=== PATIENT | female | born 1995 | race Caucasian/White ===

== ENCOUNTER → 2024-02-27 16:06 | Outpatient (CLI) | payer OTHER, SELFPAY ==
--- NOTE | 2024-02-27 16:07 | DI.US.S_ITS ---
PROCEDURE: US OB <= 14 WEEKS FETUS INDICATIONS: dating and viability OUTSIDE/PRIOR DATING DATA: Last menstrual period (LMP): 01/03/2024. LMP-based estimated date of delivery (OWEN): 10/09/2024. First dating scan (date and location): 02/27/2024. Estimated date of delivery (OWEN) from first dating scan: 10/04/2024. TECHNIQUE: Real-time scanning was performed of the fetus and maternal pelvic organs, with image documentation. Endovaginal scanning was also performed to better visualize the fetus and maternal ovaries. COMPARISON: None. FINDINGS: Embryo: 2.0 cm crown-rump length Heart rate: 178 beats per minute Maternal organs: Ovaries unremarkable. IMPRESSION: Single live intrauterine consistent with 8 weeks 4 day gestation Approved by: Derek Bach M.D. on 02/28/2024 at 18:00
== END ==
PROVIDERS: Referring Provider Obstetrics & Gynecology; Visit Provider Obstetrics & Gynecology
DX: Z34.81 Encounter for supervision of other normal pregnancy, first trimester (principal); Z3A.08 8 weeks gestation of pregnancy
CPT/HCPCS: 76801

== ENCOUNTER → 2024-03-28 15:54 | Outpatient (CLI) | payer OTHER, SELFPAY ==
[2024-03-28 18:27] LABS: Urine N gonorrhoeae NOT DETECTED
[2024-03-28 19:02] LABS: Urine Chlamydia NOT DETECTED
== END ==
PROVIDERS: Visit Provider Obstetrics & Gynecology
DX: Z11.3 Encounter for screening for infections with a predominantly sexual mode of transmission (principal)
CPT/HCPCS: 87491; 87591

== ENCOUNTER → 2024-03-28 16:05 | Outpatient (CLI) | payer OTHER, SELFPAY ==
[2024-03-28 17:29] LABS: Natera Collection Specimen Collected
[2024-03-28 17:32] LABS: Add Manual Diff / Slide Review NO; Basophils Absolute Auto 0 /uL (0-100); Basophils Percent Auto 0.7 % (0-2); Eosinophils Absolute Auto 100 /uL (0-450); Hemoglobin 12.3 g/dL (12.0-16.0); Lymphocytes Absolute Auto 2000 /uL (1100-4500); Lymphocytes Percent Auto 29.1 % (25-40); Mean Corpuscular HGB Conc 33.1 % (30-36); Mean Corpuscular Hemoglobin 26.2 PG (26-34); Mean Corpuscular Volume 79.1 fL (80-100); Monocytes Absolute Auto 400 /uL (0-900); Monocytes Percent Auto 6.1 % (3-14); Neutrophils Absolute Auto 4400 /uL (1500-7000); Neutrophils Percent Auto 63.1 % (50-75); Platelet Count 208 X10^3/uL (150-400); Red Blood Cell Count 4.68 X10^6/uL (4.0-5.2); Red Cell Distribution Width 16.9 % (11.6-14.8)
[2024-03-29 21:32] LABS: Hepatitis B Surface Antigen NEGATIVE s/c (NEGATIVE); Rubella Antibody IgG 18.1 IU/mL (>15)
[2024-03-29 21:48] LABS: HIV 1 & 2 Ab/Ag 4th Gen Combo NEGATIVE (NEGATIVE); Hep C Virus Ab w/Reflex Quant NEGATIVE s/c (NEGATIVE)
[2024-03-30 06:06] LABS: RPR Screen Non Reactive (Non Reactive)
[2024-03-30 08:36] LABS: Varicella IgG Antibody <135 index (Immune >165)
== END ==
PROVIDERS: Referring Provider Obstetrics & Gynecology; Visit Provider Obstetrics & Gynecology
DX: Z34.81 Encounter for supervision of other normal pregnancy, first trimester (principal); Z36.0 Encounter for antenatal screening for chromosomal anomalies; Z13.79 Encounter for other screening for genetic and chromosomal anomalies; Z11.3 Encounter for screening for infections with a predominantly sexual mode of transmission
CPT/HCPCS: 36415; 80055; 86787; 86803; 86850; 86900; 86901; 87389; 87491; 87591

== ENCOUNTER → 2024-04-25 14:59 | Outpatient (CLI) | payer OTHER, SELFPAY ==
[2024-04-30 12:36] LABS: AFP Value 31.6 ng/mL (.); Gest Age on Col Date 16.9 weeks (.); Gestational Age As provided (.); Insulin Dep Diabetes No (.); OSBR Risk 1IN 10000 (.); Results Report (.); Test Results *Screen Negative* (.)
== END ==
PROVIDERS: Referring Provider Obstetrics & Gynecology; Visit Provider Obstetrics & Gynecology
DX: Z36.0 Encounter for antenatal screening for chromosomal anomalies (principal)
CPT/HCPCS: 82105

== ENCOUNTER → 2024-05-16 14:40 | Outpatient (CLI) | payer OTHER, SELFPAY ==
--- NOTE | 2024-05-16 14:41 | DI.US.S_ITS ---
PROCEDURE: US OB >= 14 WEEKS FETUS INDICATIONS: 20 week anatomy scan OUTSIDE/PRIOR DATING DATA: Last menstrual period (LMP): 01/03/2024. LMP-based estimated date of delivery (OWEN): 10/09/2024. The calculations are made using the clinical OWEN of 10/09/2024. TECHNIQUE: Real-time scanning was performed of the fetus, with image documentation and biometric measurements. Endovaginal scanning: Not performed COMPARISON: None. FINDINGS: General: A single living intrauterine gestation is present. Presentation: Oblique. Placenta: Placental position is anterior , without previa. Amniotic fluid index: 16.1 cm, normal range is 5-24 cm. Single deepest vertical pocket is 5.2 cm. heart rate: 141 beats per minute. Maternal cervical canal: 5.2 cm long. Normal lower limit is 2.5 cm. biometrics: Biparietal diameter: 4.6 centimeters, 19 weeks 6 days Head circumference: 17.4 centimeters, 20 weeks 0 days Abdominal circumference: 14.7 centimeters, 20 weeks 0 days Femur length: 3.1 centimeters, 19 weeks 3 days Clinically estimated gestational age: 19 weeks 1 day Composite gestational age from present scan: 19 weeks 6 days Estimated weight and percentile: 312 grams, 81st percentile Anatomic survey: Neuro: Ventricles are non-dilated at less than 10 mm. Cisterna magna is normal at 3-11 mm. Cerebellum is normal in size and morphology. Nuchal skin fold: Normal at less than 6 mm between 14-21 weeks gestational age. Face: Nose and lips, facial profile are normal. Spine: No evidence for spina bifida. Heart: 4-chambered heart is present, with normal ventricular outflow tracts. Diaphragm: Diaphragm is intact. Stomach: Left-sided stomach is present. Kidneys: No hydronephrosis. Normal is less than 5 mm in 2nd trimester, less than 7 mm in 3rd trimester. Cord: 3-vessel cord has orthotopic insertion. Bladder: Normal in size. Extremities: All 4 extremities identified. IMPRESSION: Single living intrauterine at 19 weeks 1 day, OWEN of 10/09/2024. Estimated weight of 312 grams, 81st percentile. Normal anatomy survey. We strive to produce accurate, complete, and clear reports of imaging services. To assist us in improving patient care, this report was composed using standard report templates and voice recognition software. Therefore, it may contain abnormal punctuation, insertions and/or omissions. Occasional wrong-word or sound-alike substitutions may occur. Though we review the report and make efforts to correct it, we do recommend that the report be read carefully in proper context to recognize any text inaccuracies. Dictated by: Kian Boyd M.D. on 05/16/2024 at 16:00 Approved by: Kian Boyd M.D. on 05/16/2024 at 16:03
== END ==
PROVIDERS: Referring Provider Obstetrics & Gynecology; Visit Provider Obstetrics & Gynecology
DX: Z34.82 Encounter for supervision of other normal pregnancy, second trimester (principal); Z3A.19 19 weeks gestation of pregnancy
CPT/HCPCS: 76811

== ENCOUNTER → 2024-07-02 08:54 | Outpatient (CLI) | payer OTHER, SELFPAY ==
[2024-07-02 11:10] LABS: Hemoglobin 12.2 g/dL (12.0-16.0)
[2024-07-02 11:37] LABS: GTT (PREG) 1 Hour PP 50gm Dose 100 mg/dL (76-139)
== END ==
PROVIDERS: Referring Provider Obstetrics & Gynecology; Visit Provider Obstetrics & Gynecology
DX: Z13.1 Encounter for screening for diabetes mellitus (principal); Z13.0 Encounter for screening for diseases of the blood and blood-forming organs and certain disorders involving the immune mechanism
CPT/HCPCS: 36415; 82950; 85014; 85018

== ENCOUNTER 2024-08-24 08:49 | Observation (INO) | payer OTHER, SELFPAY ==
[2024-08-24 09:19] LABS: Appearance Urine UA CLEAR; Bilirubin Urine UA NEGATIVE (NEGATIVE); Color Urine UA YELLOW; Glucose Urine UA NEGATIVE (Negative); Ketones Urine UA NEGATIVE (NEGATIVE); Leukocyte Esterase Urine UA TRACE (NEGATIVE); Nitrite Urine UA NEGATIVE (Negative); Occult Blood Urine UA NEGATIVE (Negative); Protein Urine UA NEGATIVE (Negative); Specific Gravity Urine UA <=1.005 (1.000-1.035); Urobilinogen Urine UA 0.2 E.U./dL (0.2)
[2024-08-24 09:21] LABS: pH Urine UA 7.5 (4.5-8.0)
[2024-08-24 09:28] LABS: Bacteria Urine Few (2-10); Culture Indicated Urine Cult Not Indicated; RBC Urine None Seen (0-5/HPF); Squamous Epithelial Cell Urine 5-10 /HPF (0-5/HPF); Urine Volume 10mL (spun); WBC Urine 1-5/HPF (0-5/HPF)
== END 2024-08-24 10:50 | disposition home or self-care (01) ==
PROVIDERS: Admitting Provider Obstetrics & Gynecology; Referring Provider Obstetrics & Gynecology; Visit Provider Obstetrics & Gynecology
DX: O26.893 Other specified pregnancy related conditions, third trimester (principal); R10.9 Unspecified abdominal pain; Z3A.34 34 weeks gestation of pregnancy
CPT/HCPCS: 59025; 81001; G0378; G0379

== ENCOUNTER → 2024-09-07 09:23 | Outpatient (CLI) | payer OTHER, SELFPAY ==
[2024-09-08 11:23] LABS: Strep Grp B PCR NEG for Grp B Strep
== END ==
PROVIDERS: Visit Provider Obstetrics & Gynecology
DX: Z34.93 Encounter for supervision of normal pregnancy, unspecified, third trimester (principal); Z3A.36 36 weeks gestation of pregnancy
CPT/HCPCS: 87653

== ENCOUNTER 2024-09-22 17:38 | Inpatient (IN) | payer OTHER, SELFPAY ==
[2024-09-22] MEDS: LACTATED RINGERS 1,000 ML 1000 ML IV ×2 (18:31→21:10)
[2024-09-22] MEDS: ONDANSETRON 4 MG/2 ML INJ IV ×2 (18:40→23:22)
[2024-09-22 21:46] LABS: Add Manual Diff / Slide Review NO; Basophils Absolute Auto 0 /uL (0-100); Basophils Percent Auto 0.2 % (0-2); Eosinophils Absolute Auto 0 /uL (0-450); Eosinophils Percent Auto 0.1 % (2-4); Hematocrit 31.7 % (36-46); Hemoglobin 10.6 g/dL (12.0-16.0); Lymphocytes Absolute Auto 1100 /uL (1100-4500); Lymphocytes Percent Auto 13.1 % (25-40); Mean Corpuscular HGB Conc 33.3 % (30-36); Mean Corpuscular Hemoglobin 26.9 PG (26-34); Mean Corpuscular Volume 80.7 fL (80-100); Monocytes Absolute Auto 300 /uL (0-900); Monocytes Percent Auto 4.1 % (3-14); Neutrophils Absolute Auto 6700 /uL (1500-7000); Neutrophils Percent Auto 82.5 % (50-75); Platelet Count 159 X10^3/uL (150-400); Red Blood Cell Count 3.93 X10^6/uL (4.0-5.2); Red Cell Distribution Width 13.6 % (11.6-14.8); White Blood Cell Count 8.1 X10^3/uL (4.5-11.0)
[2024-09-22] MEDS: LACTATED RINGERS 1,000 ML 100 ML IV (22:46)
--- NOTE | 2024-09-23 00:23 | P.HPOB_ITS ---
OB HPI Date/Time Date of admission: 09/22/24 Date Patient Seen: 09/23/24 Time Patient Seen: 00:24 History of Present Condition Chief complaint: Poss Labor OWEN Calculator 2 Estimated Delivery Date Method Current WG Current Estimate 10/04/24 Ultrasound #1 38w 3d Other Estimates 10/09/24 LMP (Certain) 37w 5d Estimated Gestational Age (weeks): 38+3 : 3 Para: 2 care: good care, initiated at week # (12), number of visits (10) and pounds weight gain (29) Dating criteria OB: LMP confirmed by 1st trimester US Ultrasounds: normal 1st trimester US and normal mid trimester US Obstetrical complications: none Medical complications OB: none Narrative: H/O precipitous delivery Indications Indication for induction OB: other (prodromal labor, viral gastroenteritis, h/o precipitous delivery) Preadmission Labs Last OB Lab Results: 2 Blood Type A Positive 09/22/24 21:25 Antibody Screen Negative 09/22/24 21:25 Hct 31.7 % (36-46) L 09/22/24 21:25 Hgb 10.6 g/dL (12.0-16.0) L 09/22/24 21:25 Hep Bs Antigen Negative s/c (NEGATIVE) 03/28/24 16:28 Hepatitis C Antibody Negative s/c (NEGATIVE) 03/28/24 16:28 Rubella Antibody 18.1 IU/mL (>15) 03/28/24 16:28 VZV IgG Antibody <135 index (Immune >165) L 03/28/24 16:28 Glucose 1 Hr 50 gm 100 mg/dL (76-139) 07/02/24 10:04 Group B Strep (PCR) Neg for grp b strep 09/07/24 09:23 -: Chlamydia screen: negative, Gonorrhea screen: negative and Urine: negative -: PAP smear: Normal Genetic Screens: Cell-free DNA: Normal (low risk male) and Alpha-fetoprotein: Normal (normal) External Labs -: Urine: negative Prior (ies) Past Pregnancies Del. Date GA/Weeks Labor Lgth Wt Sex Route Outcome Anesthesia Place Delv Breastfeed Preg Comp Name 10/09/20 39 17 8 lb 1 oz Male vaginal live - full ter m epidural [facility] [place] N/A none Sean 04/29/22 39 4 6 lb 13 oz Male vaginal live - full te rm epidural [facility] [place], [place] Still going as of 02/02/24 none JJ Hx # Term Pregnancies: 2 Hx # Pregnancies: 0 Number of Living Children: 2 Multiple births: 0 Spontaneous abortions: 0 Ectopic pregnancies: 0 Elective abortions: 0 Evaluation Evaluation Baseline heart rate: 130 Contraction Frequency (minutes): 4 Uterine Contraction Intensity: Moderate Status: Category l Dilation (cm): 3 Effacement (%): 75 station: -2 Position of cervix: posterior Consistency: soft PFSH Medical History (Updated 09/12/24 @ 10:57 by Eliezer Marr MD) Acne (~2007) Chicken pox (~1999) Painful menstrual periods (~2008) Ovarian cyst (~2018) Heavy menstrual period (~2008) Anemia (~2005) Surgical History (Updated 02/02/24 @ 15:44 by Crissy Peterson RN) History of removal of skin mole [place] teeth extracted History of tonsillectomy and adenoidectomy History of elbow surgery Family History (Updated 05/10/24 @ 18:09 by Erin Cifuentes) Mother Depression Anxiety Thyroid cancer Post-surgical hypothyroidism History of tonsillectomy Father Osteoarthritis History of tonsillectomy Sister Anxiety Depression Deviated nasal septum, congenital Grandfather Skin cancer Congestive heart failure Grandmother Recurrent UTI Prediabetes Grandfather Heart attack Grandmother Dementia Aunt Crohn's disease Uncle Lung cancer Aunt Asthma Social History marital status: number of children: 2 household members: spouse lives independently: Yes caregiver/support person: Yes housing: house pets and animals: No education level: college (Associate's degree, working on bachelor's) occupational status: employed (high school football coach) current occupational exposures/hazards: No special [place] needs: No travel history: over 6 months ago seatbelt use: always water heater temp set < 120 deg: Yes working smoke detector in home: Yes fire extinguisher in home: Yes carbon monox detector in home: Yes firearms in home: Yes firearms unloaded and locked: Yes do you feel safe at home: Yes Smoking Status: Former smoker second hand exposure: No alcohol intake: former (very occasionally when not ) substance use type: does not use during the past year weight has: other (back to pre-baby weight) well-balanced diet: daily or most days daily servings fruits/ve-4 caffeine: Yes (small cup coffee in AM) Type(s) of exercise: walking and running Meds Home Medications and Allergies Home Medications Medication Instructions Recorded Confirmed Type ferrous sulfate 143 mg PO DAILY 02/02/24 09/19/24 History omega 8-snb-ngh-fish oil 1,000 mg 1 cap PO DAILY 02/02/24 09/19/24 History (120 mg-180 mg) capsule (Fish Oil) vitamin-ferrous sulfate tab PO 02/02/24 09/19/24 History 27 mg iron-folic acid 0.8 mg tablet ondansetron HCl 8 mg tablet 8 mg PO Q8H PRN nausea and 03/29/24 09/19/24 Rx vomiting #20 tabs omeprazole 40 mg capsule,delayed 40 mg PO DAILY #30 caps 05/08/24 09/19/24 Rx release valacyclovir 500 mg tablet 500 mg PO BID #60 tabs 09/07/24 09/19/24 Rx (Valtrex) oddjmsppbw-vxmgnmwfycyad-luybyxjy 2 cap PO Q4-6H PRN pain #30 caps 09/12/24 09/19/24 Rx 50 mg-325 mg-40 mg capsule Allergies Allergy/AdvReac Type Severity Reaction Status Date / Time Penicillins Allergy Mild Rash Verified 09/19/24 11:19 Sutures AdvReac Intermediate Verified 09/19/24 11:19 OB Exam Narrative Exam Narrative: Generally: Patient is sitting up in bed, no acute distress Lungs: Clear to auscultation bilaterally Cardiovascular: Regular rate and rhythm Fundal height: 39 cm Estimated weight: 7-1/2 lb Extremities: No edema Objective Labs 09/22/24 21:25 Labs: Laboratory Results - last 24 hr 09/22/24 21:25 WBC 8.1 RBC 3.93 L Hgb 10.6 L Hct 31.7 L MCV 80.7 MCH 26.9 MCHC 33.3 RDW 13.6 Plt Count 159 Neut % (Auto) 82.5 H Lymph % (Auto) 13.1 L Woodward % (Auto) 4.1 Eos % (Auto) 0.1 L Baso % (Auto) 0.2 Neut # (Auto) 6700 Lymph # (Auto) 1100 Woodward # (Auto) 300 Eos # (Auto) 0 Baso # (Auto) 0 Blood Type A Positive Antibody Screen Negative Assessment and Plan Assessment and Plan Assessment and Plan narrative: Assessment: 29-year-old 3 para 2 at 38 +4 weeks' gestation with viral gastroenteritis Prodromal labor History of precipitous second delivery Plan: Epidural in place AROM when able Pitocin augmentation if needed Expected management to spontaneous vaginal delivery Time-Based Coding :: [TOTAL MINUTES] spent with patient and on the chart (including review of chart, obtaining history, exam, reviewing outside data, placing orders, documenting exam and treatment plan, and counseling patient) on [DATE].
[2024-09-23] MEDS: ePHEDrine 50 MG/ML VIAL 10 MG IV ×2 (00:54→01:50)
--- NOTE | 2024-09-23 01:00 | PM.AN.REGBLK ---
Regional Block Pre-procedure PMH/ROS narrative: 38/2 here for nausea/vomiting and labor. Requests epidural for labor pain management. PSH/Anesthesia history narrative: See pre-anesthesia evaluation ASA Class: II Labs: Hct 31.7 % (36-46) L 09/22/24 21:25 Plt Count 159 X10^3/uL (150-400) 09/22/24 21:25 Medications: Current Medications Generic Name Dose Route Start Last Admin Trade Name Freq PRN Reason Stop Dose Admin Carboprost Tromethamine 250 mcg 09/22/24 21:11 Carboprost 250 Mcg/Ml Ampul IM Q90M PRN Bleeding Diphenhydramine HCl 25 mg 09/22/24 22:24 Diphenhydramine 50 Mg/Ml Vial IV Q10M PRN Pruritis Ephedrine Sulfate 10 mg 09/22/24 22:27 09/23/24 00:54 Ephedrine 50 Mg/Ml Vial IV 5 mg Q5M PRN Administration Blood pressure decrease more than 20% of baseline. Lactated Ringer's 1,000 mls @ 100 mls/hr 09/22/24 21:15 09/22/24 22:46 Lactated Ringers IV 09/23/24 07:14 100 mls/hr CONT LUPILLO Administration Oxytocin/Lactated Ringer's 30 unit in 500 mls @ 200 mls/hr 09/22/24 21:11 Oxytocin Premix IV CONT PRN Bleeding Protocol Tranexamic Acid 1,000 mg/ 100 mls @ 600 mls/hr 09/22/24 21:11 Sodium Chloride IV NOW PRN Bleeding FENT 2MCG/ML BUPIV 0.125% EPI 200 mcg in 100 mls @ 6 mls/hr 09/22/24 22:30 Fentanyl/Bupiv/Ns 2mcg/Ml - 0.125% EPIDURAL CONT LUPILLO Lidocaine HCl 20 ml 09/22/24 21:11 Lidocaine 1% 20 Ml INJ INTRA-OP PRN Post Delivery Methylergonovine Maleate 0.2 mg 09/22/24 21:11 Methylergonovine 0.2 Mg Tablet PO Q6HR PRN Heavy Bleeding Methylergonovine Maleate 0.2 mg 09/22/24 21:11 Methylergonovine 0.2 Mg/Ml Vial IM NOW PRN Bleeding Mineral Oil 30 ml 09/22/24 21:11 Mineral Oil 30 Ml Udc TOP PRN PRN Version Misoprostol 800 mcg 09/22/24 21:11 Misoprostol 200 Mcg Tablet GA NOW PRN Bleeding Misoprostol 400 mcg 09/22/24 21:11 Misoprostol 200 Mcg Tablet SL NOW PRN Bleeding Nalbuphine HCl 2.5 mg 09/22/24 22:24 Nalbuphine 20 Mg/Ml Ampul IV Q10M PRN Pruritis Naloxone HCl 0.2 mg 09/22/24 21:11 Naloxone 0.4 Mg/Ml Vial IV Q2MIN PRN Opiate Reversal Ondansetron HCl 4 mg 09/22/24 23:12 09/22/24 23:22 Ondansetron 4 Mg/2 Ml Inj IV 09/23/24 23:13 4 mg Q6HR PRN Administration Nausea Oxytocin 10 unit 09/22/24 21:11 Oxytocin 10 Unit/Ml Vial IM NOW PRN Bleeding Allergies: Allergies Allergy/AdvReac Type Severity Reaction Status Date / Time Penicillins Allergy Mild Rash Verified 09/19/24 11:19 Sutures AdvReac Intermediate Verified 09/19/24 11:19 Procedure Insertion date: 09/22/24 Insertion time: 22:30 Prep/Local: 1% lidocaine (Chloraprep) Interspace: L4-L5 Patient position: sitting Needle: 18 gauge Shruthi Loss of resistance with: saline ARNULFO at (cm): 6 Catheter placed at SKIN (cm): 14 Insertion: No CSF, No Blood, Yes Paresthesia with insertion, No Paresthesia with injection and No Test dose reaction Initial Medications TEST DOSE time: 22:50 TEST DOSE: 1.5% lidocaine with epinephrine 1:200k (mL): 3 BOLUS DOSE time: 22:52 BOLUS DOSE (mL): 5 BOLUS DOSE med: other (0.125% bupivacaine with 2mcg/ml fentanyl) Infusion INFUSION: 0.125% bupivacaine and with fentanyl 2 mcg/mL Initial rate (mL/hr): 6 Subsequent interventions: Patient in pain with full mobility even after bolus dose and 45mins. Removed epidural catheter at 2324 (tip intact) with plan to replace at a different interspace. Post-procedure Anesthesia date START: 09/22/24 Anesthesia time START: 22:30
--- NOTE | 2024-09-23 01:08 | PM.AN.REGBLK ---
Regional Block Pre-procedure Procedure: Continuous Lumbar Epidural for L&D Attending OB provider: Rina Tsai PMH/ROS narrative: Patient not experiencing relief with previous labor epidural, in agreement with plan to remove and replace. ASA Class: II Labs: Hct 31.7 % (36-46) L 09/22/24 21:25 Plt Count 159 X10^3/uL (150-400) 09/22/24 21:25 Medications: Current Medications Generic Name Dose Route Start Last Admin Trade Name Freq PRN Reason Stop Dose Admin Carboprost Tromethamine 250 mcg 09/22/24 21:11 Carboprost 250 Mcg/Ml Ampul IM Q90M PRN Bleeding Diphenhydramine HCl 25 mg 09/22/24 22:24 Diphenhydramine 50 Mg/Ml Vial IV Q10M PRN Pruritis Ephedrine Sulfate 10 mg 09/22/24 22:27 09/23/24 00:54 Ephedrine 50 Mg/Ml Vial IV 5 mg Q5M PRN Administration Blood pressure decrease more than 20% of baseline. Lactated Ringer's 1,000 mls @ 100 mls/hr 09/22/24 21:15 09/22/24 22:46 Lactated Ringers IV 09/23/24 07:14 100 mls/hr CONT LUPILLO Administration Oxytocin/Lactated Ringer's 30 unit in 500 mls @ 200 mls/hr 09/22/24 21:11 Oxytocin Premix IV CONT PRN Bleeding Protocol Tranexamic Acid 1,000 mg/ 100 mls @ 600 mls/hr 09/22/24 21:11 Sodium Chloride IV NOW PRN Bleeding FENT 2MCG/ML BUPIV 0.125% EPI 200 mcg in 100 mls @ 6 mls/hr 09/22/24 22:30 Fentanyl/Bupiv/Ns 2mcg/Ml - 0.125% EPIDURAL CONT LUPILLO Lidocaine HCl 20 ml 09/22/24 21:11 Lidocaine 1% 20 Ml INJ INTRA-OP PRN Post Delivery Methylergonovine Maleate 0.2 mg 09/22/24 21:11 Methylergonovine 0.2 Mg Tablet PO Q6HR PRN Heavy Bleeding Methylergonovine Maleate 0.2 mg 09/22/24 21:11 Methylergonovine 0.2 Mg/Ml Vial IM NOW PRN Bleeding Mineral Oil 30 ml 09/22/24 21:11 Mineral Oil 30 Ml Udc TOP PRN PRN Version Misoprostol 800 mcg 09/22/24 21:11 Misoprostol 200 Mcg Tablet ND NOW PRN Bleeding Misoprostol 400 mcg 09/22/24 21:11 Misoprostol 200 Mcg Tablet SL NOW PRN Bleeding Nalbuphine HCl 2.5 mg 09/22/24 22:24 Nalbuphine 20 Mg/Ml Ampul IV Q10M PRN Pruritis Naloxone HCl 0.2 mg 09/22/24 21:11 Naloxone 0.4 Mg/Ml Vial IV Q2MIN PRN Opiate Reversal Ondansetron HCl 4 mg 09/22/24 23:12 09/22/24 23:22 Ondansetron 4 Mg/2 Ml Inj IV 09/23/24 23:13 4 mg Q6HR PRN Administration Nausea Oxytocin 10 unit 09/22/24 21:11 Oxytocin 10 Unit/Ml Vial IM NOW PRN Bleeding Allergies: Allergies Allergy/AdvReac Type Severity Reaction Status Date / Time Penicillins Allergy Mild Rash Verified 09/19/24 11:19 Sutures AdvReac Intermediate Verified 09/19/24 11:19 Procedure Insertion date: 09/23/24 Insertion time: 00:24 Prep/Local: 1% lidocaine (Chloraprep) Interspace: L3-L4 Patient position: sitting Needle: 18 gauge Shruthi Loss of resistance with: saline ARNULFO at (cm): 5 Catheter placed at SKIN (cm): 14 Catheter in SPACE (cm): 9 Sensory level: T10 Insertion: Yes CSF, No Blood, No Paresthesia with insertion, No Paresthesia with injection and No Test dose reaction Initial Medications TEST DOSE time: 00:39 TEST DOSE: 1.5% lidocaine with epinephrine 1:200k (mL): 3 BOLUS DOSE time: 00:41 BOLUS DOSE med: other (50mcg fentanyl and 0.5ml 1% lidocaine intrathecal (CSE) followed by 50mcg fentanyl, 2ml 1% lidocaine and 2ml 1.5% lidocaine with 1:200k epinephrine as epidural bolus following test dose) Infusion INFUSION: 0.125% bupivacaine and with fentanyl 2 mcg/mL Initial rate (mL/hr): 6 (4ml PCEA bolus q15 min) Subsequent interventions: 50mcg fentanyl bolus with 5ml 2% lidocaine and 5ml 0.5% bupivacaine given for increasing labor pain not relieved by PCEA. Basal rate increased to 8ml/hr. Pt experienced relief following bolus. Post-procedure Anesthesia date START: 09/22/24 Anesthesia time START: 22:30 Anesthesia date END: 09/23/24 Anesthesia time END: 13:35 Post-procedure Anesthesia Assessment: Yes CV function: HR/BP stable, Yes Resp function: RR/sat/airway adequate, Yes Post-op hydration adequate, Yes Pain control adequate, Yes Nausea & vomiting absent, Yes Temperature > 36 C, Yes Mental status appropriate and No Anesthesia complications
[2024-09-23] MEDS: METOCLOPRAMIDE 10 MG/2 ML INJ IV (03:22)
[2024-09-23] MEDS: OXYTOCIN PREMIX 30 UNIT/500 ML PLAST..BAG IV (04:22)
[2024-09-23] MEDS: LACTATED RINGERS 1,000 ML 100 ML IV (05:33)
[2024-09-23] MEDS: ONDANSETRON 4 MG/2 ML INJ IV ×3 (07:47→18:04)
--- NOTE | 2024-09-23 09:47 | PM.OBPNLAB ---
Date/Time Date Patient Seen: 09/23/24 Time Patient Seen: 09:47 Pain Control Pain control: epidural Pelvic Exam Dilation (cm): 3 Effacement (%): 60 station: -2 Amniotic membrane status: Ruptured Contractions Pitocin rate (mU/min): 6 Contraction frequency (min): 3 Status Heart Rate Baseline: 130 Monitor Accelerations: Present Monitor Decelerations: Absent Monitor Variability: Moderate Assessment and Plan Comments: 29yo at 38w3d here in active labor. After informed consent, AROM performed with clear fluid present. Asked to rupture for her primariy OB, Dr Tsai. - Continue pitocin, titrate as tolerated - FHT reassuring - Epidural in place for pain control
[2024-09-23] MEDS: FENT 2MCG/ML BUPIV 0.125% EPI 200 MCG/100 ML PLAST..BAG 6 MCG EPIDURAL (11:06)
--- NOTE | 2024-09-23 12:00 | PM.OBPNLAB ---
Date/Time Date Patient Seen: 09/23/24 Time Patient Seen: 12:00 Pain Control Pain control: epidural Comments: Just bolused epidural Pelvic Exam Dilation (cm): 5 Effacement (%): 75 station: -2 Amniotic membrane status: Ruptured (clear at 1032) Contractions Contractions on admission: irregular Monitor mode: External Pitocin rate (mU/min): 9 Contraction frequency (min): 4 Contraction duration (min): 1 Contraction pattern: Regular Contraction intensity: Moderate Status status: Category l Heart Rate Baseline: 125 Monitor Accelerations: Present Monitor Decelerations: Absent Monitor Variability: Moderate Assessment and Plan Assessment: induction ongoing Comments: Expectant management to
[2024-09-23] MEDS: OXYTOCIN 10 UNIT/ML VIAL IM (14:06)
--- NOTE | 2024-09-23 14:12 | PM.OBPRVD ---
Labor & Delivery Delivery date: 09/23/24 Delivery Time: 13:35 Induction method: per pitocin protocol Delivery augmentation: rupture of membranes Delivery monitor: external FHT and external uterine Route of delivery: Episiotomy description: None L&D Laceration Description: None Quantitative Blood Loss: 202 Anesthesia Type: Epidural Complications: None Narrative: Patient complete and pushed for 35 minutes. At 1:35 p.m., a live male delivered spontaneously in the direct occiput posterior presentation, over an intact perineum. Restitution to TABITHA. The remainder of the body delivered without difficulty and was placed on mom's abdomen. Pitocin was given in the IV fluids. After the cord stopped pulsing, the cord was double clamped and cut. Cord bloods were obtained. The placenta delivered intact with a three-vessel cord at 1:45 p.m.. The fundus was massaged to firm. The perineum and vagina were inspected and there were no lacerations noted. Apgars 9 at 1 minute and 10 at 5 minutes. . Epidural analgesia. Mom and stable to recovery. Baby 1: Infant gender: Male Presentation: vertex Position: Occiput Posterior Placenta delivery description: Spontaneous Cord Vessel Description: 3 Vessels and Clamped/Cut (After the cord stopped pulsing) score (1 min): 9 score (5 min): 10 weight: 7 lb 2.2 oz Plan for aftercare: Routine care
[2024-09-23] MEDS: ACETAMINOPHEN 325 MG TABLET 650 MG PO ×2 (15:05→21:15)
[2024-09-23] MEDS: IBUPROFEN 600 MG TABLET PO ×2 (15:05→21:16)
[2024-09-23] MEDS: WITCH HAZEL/GLYCERIN PADS 1 EACH TOP (15:06)
[2024-09-23] MEDS: DERMOPLAST SPRAY 20% 60 ML 1 SPRAY TOP (15:06)
[2024-09-24] MEDS: ACETAMINOPHEN 325 MG TABLET 650 MG PO ×2 (03:12→09:18)
[2024-09-24] MEDS: IBUPROFEN 600 MG TABLET PO (03:13)
[2024-09-24 05:41] LABS: Hematocrit 28.8 % (36-46); Hemoglobin 9.9 g/dL (12.0-16.0)
[2024-09-24] MEDS: PRENATAL VIT,CALC/IRON/FOLIC 1 TABLET 1 TAB PO (09:18)
[2024-09-24] MEDS: DOCUSATE 100 MG CAPSULE PO (09:18)
[2024-09-24 13:12] VITALS: BP 113/70; PULSE 66; RESP 18; TEMP 36.7
--- NOTE | 2024-09-25 00:12 | PM.OBDS.1 ---
Discharge Providers Provider Date of admission: 09/22/24 17:38 Discharge Date: 09/24/24 Primary care physician: Doctor Jace MD Consults: 09/22/24 21:11 Consult to Anesthesiology Urgent Comment: Consulting Provider: Roland Rubio Reason for consultation: Epidural Discharge provider: Rina Tsai MD Summary Hospital Course Date Patient Seen: 09/24/24 Time Patient Seen: 11:45 Diagnoses: 38+ 4 weeks gestation Viral gastroenteritis Spontaneous vaginal delivery Augmentation of labor Hospital Course: Patient is a 29-year-old 3 para 3 who presented on September 22, 2024 with a viral gastroenteritis and contractions. She had some change in her cervix and a decision was made to proceed with augmentation of labor. She was started on Pitocin. She received an epidural for pain management. She had a spontaneous vaginal delivery without complication. Her course was unremarkable. She was discharged home on day # 1. Peripartum Data Infant Delivery Method: Natural Vaginal Laceration Description: None Procedures: Epidural analgesia Spontaneous vaginal delivery complications: none 1: Gender: Male Disposition of : home Status at Discharge Cognitive/behavioral status at discharge: oriented Functional status at discharge: independent ambulation Overall status at discharge: patient is progressing back to baseline Time Spent with Patient Time attestation: Total time spent providing and/or coordinating discharge services: Time spent: Less than 30 minutes Objective Labs 09/24/24 05:31 Labs: Laboratory Results - last 24 hr 09/24/24 05:31 Hgb 9.9 L Hct 28.8 L Exam Narrative Exam Narrative: Generally: Patient is sitting up in bed, no acute distress Fundus: Firm at U -1 Extremities: No edema, negative Homans Discharge Plan Discharge Plan Patient Disposition: Home Provider Discharge Comment: Call with fever, chills, or bleeding vaginally more than a pad in an hour Ibuprofen 600 mg every 6 hours as needed for cramping Tylenol 650 mg every 6 hours as needed for pain Push oral fluids Continue vitamins And iron once a day Discharge orders & Medications Prescriptions: Continued vit-ferrous sulfat-FA 27 mg iron- 0.8 mg tablet See Rx Instructions .ROUTE .COMPLEX Rx Instructions: per provider order omega 1-ptx-mcs-fish oil [Fish Oil] 1,000 mg (120 mg-180 mg) capsule 1 cap PO DAILY ferrous sulfate 47.5 mg iron tablet extended release 143 mg PO DAILY ovgnmnvtxh-vccemcgtdokvc-diso 50-325-40 mg capsule 2 cap PO Q4-6H PRN (Reason: pain) Qty: 30 0RF Rx Instructions: do not exceed 6 tabs per 24 hrs Discontinued ondansetron HCl 8 mg tablet 8 mg PO Q8H PRN (Reason: nausea and vomiting) Qty: 20 2RF omeprazole 40 mg capsule,delayed release(DR/EC) 40 mg PO DAILY Qty: 30 6RF valacyclovir [Valtrex] 500 mg tablet 500 mg PO BID Qty: 60 1RF Follow up/Referrals: Eliezer Marr MD [Physician] - (Follow-up in [address] Marr on TuesdayNovember 07 at 1130 am. Please arrive at 1115 am. ) Diet/Activity/Treatments Diet: Regular Activity: Nothing in the vagina for 6 weeks Skin/Wound/Dressing Care Report to your healthcare provider any signs of infection, such as:: chills, fever, increased pain and unusual drainage Visit Report/Discharge Packet Instructions: DI for Labor and Delivery, Vaginal Stand Alone Forms: Discharge: Care, Patient Portal/API, Stroke Signs & Symptoms Discharge Data Primary Care Provider: Miscellaneous,Doctor
== END 2024-09-24 12:30 | disposition home or self-care (01) | DRG 807 ==
PROVIDERS: Admitting Provider Obstetrics & Gynecology; Referring Provider Obstetrics & Gynecology; Visit Provider Obstetrics & Gynecology
DX: O99.62 Diseases of the digestive system complicating childbirth (principal); A08.4 Viral intestinal infection, unspecified; Z37.0 Single live birth; Z3A.38 38 weeks gestation of pregnancy
CPT/HCPCS: 36415; 59050; 59400; 59409; 85014; 85018; 85025; 86850; 86900; 86901; G0379; J2405; J2590; J2765; J3010